=== PATIENT | male | born 1945 | race Caucasian/White ===

== ENCOUNTER 2017-01-08 15:39 | Inpatient (IN) | payer MEDICARE, OTHER ==
[~2017-01-08] VITALS: Ht 177.8 cm; Wt 59.0 kg
[2017-01-08] MEDS ORDERED: BUPRENORPHIN-N1 EACH SL (17:06)
[2017-01-09 06:22] LABS: HEMOGLOBIN 13.5 gm/dl (14.0-17.5); RED BLOOD COUNT 4.03 M/UL (4.20-5.50); WHITE BLOOD COUNT 14.7 K/UL (4.5-11.0)
[2017-01-09 06:57] LABS: BUN/CREATININE RATIO 19 (0-10)
[2017-01-10 03:31] LABS: HEMOGLOBIN 13.5 gm/dl (14.0-17.5); RED BLOOD COUNT 3.97 M/UL (4.20-5.50); WHITE BLOOD COUNT 13.7 K/UL (4.5-11.0)
[2017-01-10 03:52] LABS: BUN/CREATININE RATIO 21 (0-10)
[2017-01-10] MEDS ORDERED: ASPIRIN EC81 MG PO (10:44)
[2017-01-10] MEDS ORDERED: LIPITOR TAB 2020 MG PO (10:46)
[2017-01-10] MEDS ORDERED: ZESTRIL5 MG PO (10:47)
[2017-01-10] MEDS ORDERED: LOPRESSOR 25 MG25 MG PO (10:49)
[2017-01-10] MEDS ORDERED: BRILINTA 90 MG90 MG PO (10:51)
[2017-01-10] MEDS ORDERED: NITROSTAT0.4 MG SL (10:52)
[2017-01-10] MEDS ORDERED: ALDACTONE25 MG PO (10:53)
== END 2017-01-10 19:23 | disposition home or self-care (01) | DRG 246 ==
LOC: CCU 15:39 → ZOBSOF 17:13 → CCU 17:24
PROVIDERS: ADMIT Internal Medicine
PROC: 027034Z Dilation of Coronary Artery, One Artery with Drug-eluting Intraluminal Device, Percutaneous Approach (ICD-10-PCS; principal; 2017-01-08)
PROC: 4A023N8 Measurement of Cardiac Sampling and Pressure, Bilateral, Percutaneous Approach (ICD-10-PCS; 2017-01-08)
PROC: 3C1ZX8Z Irrigation of Indwelling Device using Irrigating Substance, External Approach (ICD-10-PCS; 2017-01-08)
DX: I22.9 Subsequent ST elevation (STEMI) myocardial infarction of unspecified site (principal); I50.21 Acute systolic (congestive) heart failure; F17.210 Nicotine dependence, cigarettes, uncomplicated; J44.9 Chronic obstructive pulmonary disease, unspecified; F11.21 Opioid dependence, in remission; Z79.899 Other long term (current) drug therapy; E78.5 Hyperlipidemia, unspecified; I11.0 Hypertensive heart disease with heart failure
CPT/HCPCS: ECHO; 36415; 80048; 82550; 82553; 83036; 83690; 83735; 84132; 84484; 85027; 85347; 93005; 93306; C1725; C1757; C1769; C1874; C1887; C9600; J0461; J0583; J1644; J3010; J7040; Q9965

== ENCOUNTER 2017-02-21 19:23 | Inpatient (IN) | payer MEDICARE, OTHER ==
[~2017-02-21] VITALS: Ht 165.1 cm; Wt 60.0 kg
[~2017-02-21 19:23] MED LIST: ALDACTONE25 MG PO; ASPIRIN EC81 MG PO; BRILINTA 90 MG90 MG PO; BUPRENORPHIN-N1 EACH SL; LIPITOR TAB 2020 MG PO; LOPRESSOR 25 MG25 MG PO; NITROSTAT0.4 MG SL; ZESTRIL5 MG PO
[2017-02-21] MEDS ORDERED: NEURONTIN 400400 MG PO (20:22)
[2017-02-22 06:47] LABS: BUN/CREATININE RATIO 18 (0-10)
[2017-02-23 04:15] LABS: HEMOGLOBIN 14.6 gm/dl (14.0-17.5); RED BLOOD COUNT 4.42 M/UL (4.20-5.50)
[2017-02-23 04:29] LABS: BUN/CREATININE RATIO 14 (0-10)
[2017-02-25 03:49] LABS: HEMOGLOBIN 14.5 gm/dl (14.0-17.5); RED BLOOD COUNT 4.44 M/UL (4.20-5.50); WHITE BLOOD COUNT 8.6 K/UL (4.5-11.0)
[2017-02-25 04:06] LABS: BUN/CREATININE RATIO 26 (0-10)
== END 2017-02-26 14:00 | disposition home or self-care (01) | DRG 309 ==
LOC: CCU 19:48
PROVIDERS: Internal Medicine; ADMIT Emergency Medicine
DX: R00.1 Bradycardia, unspecified (principal); I50.22 Chronic systolic (congestive) heart failure; E86.0 Dehydration; I11.0 Hypertensive heart disease with heart failure; J44.9 Chronic obstructive pulmonary disease, unspecified; I95.2 Hypotension due to drugs; G40.909 Epilepsy, unspecified, not intractable, without status epilepticus; I25.5 Ischemic cardiomyopathy; E78.5 Hyperlipidemia, unspecified; I25.2 Old myocardial infarction; Z72.0 Tobacco use; Z79.82 Long term (current) use of aspirin; Z95.5 Presence of coronary angioplasty implant and graft; Z85.828 Personal history of other malignant neoplasm of skin; Z79.899 Other long term (current) drug therapy; T46.4X5A Adverse effect of angiotensin-converting-enzyme inhibitors, initial encounter; T46.1X5A Adverse effect of calcium-channel blockers, initial encounter
CPT/HCPCS: 36415; 80048; 82550; 82553; 83735; 84484; 85027; 93005; 94640; 94664; J1265; J7030